=== PATIENT | female | born 1965 | race Caucasian/White ===

== ENCOUNTER 2018-04-07 07:33 | Day surgery (SDC) | payer BC ==
[~2018-04-07] VITALS: Ht 162.6 cm; Wt 68.9 kg
[2018-04-07] MEDS ORDERED: NS 1000 ML IV.SOLN IV ONE (09:20)
[2018-04-07] MEDS ORDERED: MIVACURIUM CHLORIDE 20 MG/10 ML VIAL (MIVACRON) INJ ONE (09:20)
[2018-04-07] MEDS ORDERED: PROPOFOL 200MG/ 20ML VIAL (DIPRIVAN) IV ONE (09:20)
[2018-04-07] MEDS ORDERED: KETOROLAC TROMETHAMINE 30 MG VIAL IVP ONE (09:20)
[2018-04-07] MEDS ORDERED: SEVOFLURANE 15 MIN GAS INH ONE (09:20)
[2018-04-07] MEDS ORDERED: MIDAZOLAM HCL 5 MG/5 ML VIAL IVP ONE (09:20)
[2018-04-07] MEDS ORDERED: ONDANSETRON HCL 4 MG/2 ML VIAL IVP ONE (09:20)
[2018-04-07] MEDS ORDERED: fentaNYL CITRATE 250 MCG/5 ML AMP IV ONE (09:20)
[2018-04-07] MEDS ORDERED: LR 1,000 ML IV SCH (09:53)
[2018-04-07] MEDS ORDERED: METOCLOPRAMIDE HCL 10 MG/2 ML VIAL IVP PRN (10:00)
[2018-04-07] MEDS ORDERED: MORPHINE 4 MG/ML INJ. SYRINGE IVP PRN ×3 (10:00)
[2018-04-07] MEDS ORDERED: IBUPROFEN 800 MG TABLET PO PRN (10:15)
[2018-04-07] MEDS ORDERED: OXYCODONE/ACETAMINOPHEN 5-325 TABLET PO PRN ×2 (10:15)
[2018-04-07] MEDS ORDERED: ONDANSETRON HCL 4 MG/2 ML VIAL IVP PRN (10:15)
[2018-04-07 12:00] VITALS: BP_SYST 106
== END 2018-04-07 12:00 | disposition home or self-care (01) ==
LOC: SDS 07:33
PROVIDERS: ATTEND Obstetrics & Gynecology
DX: N85.01 Benign endometrial hyperplasia (principal); D64.9 Anemia, unspecified; Z98.890 Other specified postprocedural states; Z82.49 Family history of ischemic heart disease and other diseases of the circulatory system; Z83.3 Family history of diabetes mellitus; Z80.8 Family history of malignant neoplasm of other organs or systems; Z79.899 Other long term (current) drug therapy
CPT/HCPCS: 58563; 88305; J1885; J2250; J2405; J2704; J3010; J7030; J7120

== ENCOUNTER 2022-07-28 14:04 | Emergency (ER) | payer BC ==
--- NOTE | 2022-07-28 14:10 | NUR ---
PT STATES SHE DOES NOT WANT TO BE SEEN BY NURSES OR DOCTOR, REFUSED TX
== END 2022-07-28 14:10 ==
LOC: SED 14:04
DX: Z02.89 Encounter for other administrative examinations (principal); Z53.21 Procedure and treatment not carried out due to patient leaving prior to being seen by health care provider